=== PATIENT | male | born 1970 | race Hispanic/Latino ===

== ENCOUNTER 2017-09-09 22:35 | Emergency (ER) | payer OTHER, SELFPAY ==
[2017-09-09 23:42] LABS: Bilirubin Negative (Negative); Blood, Urine Negative (Negative); Clarity CLEAR (Clear); Glucose, Urine (Dipstick) >=1000 mg/dL (Negative); Leukocyte Negative (Negative); Nitrite Negative (Negative); Protein, Urine (Dipstick) Negative (Neg-Trace); Specific Gravity, Urine 1.036 (1.002-1.036)
[2017-09-09 23:51] LABS: #Eosinphils 0.3 thou/uL (0.0-0.7); #Lymphocytes 2.7 thou/uL (1.20-3.40); #Monocytes 0.3 thou/uL (0.11-0.59); #Neutrophils 3.8 thou/uL (1.40-6.50); %Basophils 0.3 % (0.0-1.0); %Eosinophils 4.8 % (0.0-10.0); %Lymphocytes 37.2 % (21.0-51.0); %Monocytes 4.2 % (0.0-10.0); %Neutrophils 53.5 % (42.0-75.0); Hemoglobin 15.5 g/dL (14.0-18.0); Mean Corpuscular HGB CONC 35.5 g/dL (32.0-36.0); Mean Corpuscular Hemoglobin 31.6 pg (27.0-31.0); Mean Corpuscular Volume 89.1 fL (78.0-98.0); Mean Platelet Volume 9.3 fL (7.4-10.4); Platelet Count 212 thou/uL (130-400); RBC Distribution Width 11.6 % (11.5-14.5); White Blood Cell (WBC) Count 7.1 thou/uL (4.8-10.8)
[2017-09-10 00:15] LABS: ALT (SGPT) 26 U/L (8-55); AST (SGOT) 16 U/L (5-34); Albumin 4.1 g/dL (3.5-5.0); Alkaline Phosphatase 66 U/L (40-150); Anion Gap 12 mmol/L (10-20); BUN (Urea Nitrogen) 18 mg/dL (8.9-20.6); Bilirubin, Total 0.4 mg/dL (0.2-1.2); Calc. Creatinine Clearance 0 mL/min (70-130); Calcium 10.2 mg/dL (7.8-10.44); Carbon Dioxide 26 mmol/L (22-29); Chloride 105 mmol/L (98-107); Estimated GFR-MDRD 64; Globulin 3.7 g/dL (2.4-3.5); Glucose 269 mg/dL (70-105); Potassium 3.9 mmol/L (3.5-5.1); Protein, Total 7.8 g/dL (6.0-8.3); Sodium 139 mmol/L (136-145)
[2017-09-10 00:19] LABS: CKMB 2.2 ng/mL (0-6.6); Troponin I Less than 0.010 ng/mL (< 0.028)
[2017-09-10] MEDS ORDERED: Ibuprofen 800 MG TAB ONE (01:08)
--- NOTE | 2017-09-10 08:36 | RAD ---
THREE VIEWS OF THE LUMBAR SPINE 09/09/17 HISTORY: T12 and L1 midline back pain. Worsening pain. COMPARISON: None. FINDINGS: There are five lumbar type vertebral bodies. Lumbar spine vertebral body height is maintained. No fra cture. No spondylolisthesis or spondylolysis. There is degenerative change with loss of disc space height and osteophyte formation of the distal th oracic spine and the thoracolumbar junction. IMPRESSION: Degenerative changes involving the distal thoracic and thoracolumbar junction. Nonemergent MRI may be beneficial. POS: [facility]
--- NOTE | 2017-09-10 08:36 | RAD ---
CHEST TWO VIEW 09/09/17 HISTORY: Swelling. COMPARISON: 03/26/16. FINDINGS: Normal cardiac silhouette. Lungs and pleural spaces are clear. No pneumothorax or osseous abnormaliti es. IMPRESSION: No acute cardiopulmonary process. POS: [facility]
== END 2017-09-10 01:12 | disposition home or self-care (01) ==
LOC: ERS 22:35
DX: M51.35 Other intervertebral disc degeneration, thoracolumbar region (principal); E11.9 Type 2 diabetes mellitus without complications; I10 Essential (primary) hypertension; Z79.84 Long term (current) use of oral hypoglycemic drugs; Z79.899 Other long term (current) drug therapy
CPT/HCPCS: 36415; 36416; 71046; 72100; 80053; 81003; 82553; 83880; 84484; 85025; 93005

== ENCOUNTER 2018-07-10 22:50 | Inpatient (IN) | payer SELFPAY ==
[2018-07-11] MEDS ORDERED: Acetaminophen 325 MG TAB PO PRN (01:59)
[2018-07-11] MEDS ORDERED: Ondansetron PF 4 MG/2 ML Vial IVP PRN (01:59)
[2018-07-11] MEDS ORDERED: Ondansetron ODT 4 MG TAB SL PRN (01:59)
[2018-07-11 03:13] VITALS: BMI 39.9
[2018-07-11] MEDS ORDERED: HumaLOG 300 UNITS/3 ML VIAL SC PRN (07:47)
[2018-07-11] MEDS ORDERED: Dextrose 5% in Water 1,000 ML IV PRN (07:47)
[2018-07-11] MEDS ORDERED: Dextrose 50% Abboject 50 ML SYRINGE SLOW IVP PRN (07:47)
[2018-07-11 08:27] LABS: #Eosinphils 0.6 thou/uL (0.0-0.7); #Lymphocytes 2.1 thou/uL (1.20-3.40); #Monocytes 0.4 thou/uL (0.11-0.59); %Basophils 0.4 % (0.0-1.0); %Eosinophils 8.1 % (0.0-10.0); %Lymphocytes 29.5 % (21.0-51.0); %Monocytes 5.7 % (0.0-10.0); %Neutrophils 56.3 % (42.0-75.0); Hemoglobin 14.2 g/dL (14.0-18.0); Mean Corpuscular HGB CONC 34.3 g/dL (32.0-36.0); Mean Corpuscular Hemoglobin 31.2 pg (27.0-31.0); Mean Corpuscular Volume 90.9 fL (78.0-98.0); Mean Platelet Volume 9.9 fL (7.4-10.4); Platelet Count 216 thou/uL (130-400); RBC Distribution Width 11.8 % (11.5-14.5); Red Blood Cell (RBC) Count 4.55 mill/uL (4.70-6.10); White Blood Cell (WBC) Count 7.1 thou/uL (4.8-10.8)
[2018-07-11 08:31] LABS: Anion Gap 14 mmol/L (10-20); BUN (Urea Nitrogen) 16 mg/dL (8.9-20.6); Calc. Creatinine Clearance 159 mL/min (70-130); Calcium 9.3 mg/dL (7.8-10.44); Carbon Dioxide 23 mmol/L (22-29); Chloride 104 mmol/L (98-107); Estimated GFR-MDRD 76; Glucose 184 mg/dL (70-105); Potassium 3.5 mmol/L (3.5-5.1); Sodium 137 mmol/L (136-145)
--- NOTE | 2018-07-11 09:39 | ULT ---
Carotid duplex sonogram HISTORY: TIA. Vascular disease. FINDINGS: Right: Minimal intimal thickening. No plaque well demonstrated. Color and spectral Doppler evaluation , peak systolic velocity of 60 cm/s, and IC to CC ratio 0.6 suggest no hematemesis significant stenosis within the extra cranial right ICA. Right vertebral artery not well demonstrated.. Reactive appearing lymph node noted at the right submandibular level. Left: Minimal plaque. Color and spectral Doppler evaluation, peak systolic velocity of 65 cm/s, and I C to CC ratio 0.7 suggest no hemodynamically significant stenosis within the extracranial left ICA. External carotid artery not well visualized. Antegrade flow within the vertebral artery. IMPRESSION: Mild atherosclerosis. No sonographic evidence of significant extracranial ICA stenosis.
--- NOTE | 2018-07-11 09:42 | HP ---
PRIMARY CARE PHYSICIAN: Patricia Leon PA-C. CHIEF COMPLAINT: Left-sided facial droop, slurred speech, and left upper and lower extremity weakness. HISTORY OF PRESENT ILLNESS: Mr. Loredo is a 48-year-old male with past medical history of hypertension, diabetes mellitus, and hyperlipidemia, who had presented to [place] [facility] yesterday for a possible CVA, TIA. He had stated that he had developed left-sided facial numbness and facial droop along with left upper and lower extremity weakness that lasted for about 15-20 minutes. He had reported that these symptoms were present about 1 week ago as well. He had denied any headache, fever, chills, blurred vision, chest pain, palpitation, shortness of breath, abdominal pain, nausea, vomiting, or any change in his stool. He did report once he had returned home after being out at a store with his , he had became slightly lightheaded; however, this had also lasted for about 15-20 minutes prior to arrival in the [place] [facility]. His workup was essentially unremarkable; however, he was noted to have an indeterminate troponin. Therefore, he was transferred to [facility] for further workup and management. His serial troponins were found to be trending down with his 1st of 0.084, 0.045 and the most current 0.020. Otherwise, his other lab work was essentially unremarkable. Brain CT showed no acute changes. Portable chest x-ray was unremarkable. CT dissection protocol was also unremarkable and the patient is no longer experiencing any left facial droop; however, he states that he has a mild left-sided facial numbness. It is determined that the patient will undergo further workup of symptoms to rule out TIA/CVA, and he will be started on aspirin and statin therapy. REVIEW OF SYSTEMS: All other systems reviewed and found to be negative unless mentioned in the HPI. PAST MEDICAL HISTORY: 1. Hypertension. 2. Hyperlipidemia. 3. Diabetes mellitus, type 2. PAST SURGICAL HISTORY: Bilateral leg vein cauterization. PSYCHIATRIC HISTORY: None. SOCIAL HISTORY: The patient denied any alcohol, tobacco, or illicit drug use. He states he lives at home with his family. KNOWN ALLERGIES: Tetanus. CURRENT HOME MEDICATIONS: 1. Metformin 500 mg oral twice daily. 2. Lisinopril daily. 3. Hydrochlorothiazide . PHYSICAL EXAMINATION: VITAL SIGNS: BP 121/69, pulse 77, respirations 16, temperature 97.5 degrees Fahrenheit, and O2 saturations 96% on room air. GENERAL: The patient is awake, alert, and oriented x3. He is currently lying comfortably in bed with his at bedside. He appears to be in no acute distress. HEENT: Atraumatic and normocephalic. Pupils are round and reactive to light. Extraocular muscles intact. Moist mucous membranes noted. There is no facial droop noted. CARDIOVASCULAR: Positive S1 and S2. Regular rate and rhythm. No murmur auscultated. RESPIRATORY: Clear to auscultation bilaterally. No wheezes, rales, or rhonchi. ABDOMEN: Soft and nontender. Bowel sounds present. MUSCULOSKELETAL: Strength 5+ bilaterally in upper and lower extremities. Pedal and radial pulses 2+ bilaterally. Trace edema noted. NEUROLOGIC: Cranial nerves 2 through 12 grossly intact. No focal deficits noted. Speech intact and normal. Gait not assessed. SKIN: Warm, dry, and intact. No rashes. No ulcerations noted. PSYCHIATRIC: Good mood and affect. LABORATORY DATA: WBC 7.1, RBC 4.55, hemoglobin 14.2, and platelets 216. Sodium 137, potassium 3.5, creatinine 1.04, estimated GFR 76, and glucose 184. Troponin 0.084, 0.045, and 0.020. Magnesium 2.0. DIAGNOSTIC IMAGING: Portable chest x-ray was unremarkable. Brain CT was normal. CT dissection protocol was unremarkable. ASSESSMENT AND PLAN: 1. Transient ischemic attack/cerebrovascular accident, rule out. The patient will undergo MRI of brain without contrast. An echocardiogram is ordered along with a carotid Doppler. The patient will be placed on aspirin and statin therapy at this time. He is currently not having any symptoms. Therefore, he will be closely monitored during hospital stay. 2. History of hypertension. The patient will be placed on his home regimen. Vital signs will be monitored throughout hospital course. 3. Diabetes mellitus, type 2. Metformin will be held; however, he will be started on an insulin sliding scale with frequent Accu-Cheks. 4. Hyperlipidemia. As above, he will be started on atorvastatin daily. 5. Code status, full code. 6. Deep vein thrombosis and gastrointestinal prophylaxis. DISPOSITION: The patient will undergo further workup for a TIA/CVA rule out, and based off his workup, he will likely be discharged in the next 1-2 days, he will be started on aspirin and statin therapy, and he will likely follow up with his PCP within 1 week of discharge. Job ID: [id number]
--- NOTE | 2018-07-11 09:58 | MRI ---
MRI BRAIN WITHOUT CONTRAST: HISTORY: A 48-year-old male with TIA, left-sided numbness and tingling. FINDINGS: Correlation is made with the CT scan of previous day. There is a small focal area of restricted diff usion in the right anterior thalamus with low signal intensity on ADC image consistent with acute lac unar infarction. No hemorrhage, midline shift, or abnormal extraaxial fluid collections are seen. V entricular size is appropriate and the basilar cisterns are patent. The visualized paranasal sinuses and mastoid air cells are well aerated. IMPRESSION: Acute lacunar infarction in the right anterior thalamus. POS: [facility]
[2018-07-11] MEDS ORDERED: Aspirin 81 mg Enteric Coated Tablet PO SCH ×2 (10:10→10:30)
[2018-07-11] MEDS: HumaLOG 300 UNITS/3 ML VIAL SC PRN ×2 (11:13→17:03)
--- NOTE | 2018-07-11 11:23 | CT ---
PRELIMINARY REPORT/[facility]/EMERGENCY AFTER HOURS PROCEDURE: EXAM: CT Angiography Chest With Contrast EXAM DATE/TIME: 07/11/2018 1:25 AM CLINICAL HISTORY: 48 years old, male; Abdominal pain; Generalized; Patient HX: No previous. . . Er 3. . . M48 with a hi story of HTN, dm and hdl presents to the ED from [place] [facility] for evaluation of possible cva/tia. PT reports at 16:30 today the PT began experiencing left sided facial numbness, left sided facial mere op, left ue numbness, and bilateral le weakness. PT reports his symptoms have resolved. PT reports he was experiencing chest pain yesterday. PT reports he experienced similar symptoms of left sided faci al numbness that resolved quickly last week. PT reports family HX of stroke, father. PT reports he ta kes metformin, lisinopril and hydrochlorothiazide. TECHNIQUE: Imaging protocol: Axial computed tomographic angiography images of the chest with intravenous contras t using CT angiography protocol. Coronal and sagittal reformatted images were created and reviewed. 3D rendering: MIP reconstructed images were created and reviewed. COMPARISON: No relevant prior studies available. FINDINGS: Pulmonary arteries: Limited evaluation due to suboptimal contrast opacification of the pulmonary dea alin, however there is no obvious central pulmonary embolism. Aorta: No acute findings. No aortic aneurysm or dissection. Lungs: No consolidation. No masses. Pleural space: No pneumothorax. No pleural effusion. Heart: Borderline cardiomegaly. No pericardial effusion. Lymph nodes: No significant adenopathy. Bones/joints: No acute fracture. Soft tissues: No acute findings. IMPRESSION: No acute findings. EXAM: CT Angiography Abdomen With Contrast EXAM DATE/TIME: 07/11/2018 1:25 AM CLINICAL HISTORY: 48 years old, male; Abdominal pain; Generalized; Patient HX: No previous. . . Er 3. . . M48 with a hi story of HTN, dm and hdl presents to the ED from [place] [facility] for evaluation of possible cva/tia. PT reports at 16:30 today the PT began experiencing left sided facial numbness, left sided facial mere op, left ue numbness, and bilateral le weakness. PT reports his symptoms have resolved. PT reports he was experiencing chest pain yesterday. PT reports he experienced similar symptoms of left sided faci al numbness that resolved quickly last week. PT reports family HX of stroke, father. PT reports he ta kes metformin, lisinopril and hydrochlorothiazide. TECHNIQUE: Imaging protocol: Axial computed tomographic angiography images of the abdomen with intravenous contr ast material. Coronal and sagittal reformatted images were created and reviewed. 3D rendering: MIP reconstructed images were created and reviewed. COMPARISON: No relevant prior studies available. FINDINGS: Lungs: Unremarkable. No consolidation. VASCULATURE: Aorta: No acute findings. No aortic aneurysm. No aortic dissection. Celiac trunk and mesenteric arteries: No acute findings. No occlusion or significant stenosis. Renal arteries: No acute findings. No occlusion or significant stenosis. ABDOMEN: Liver: Normal. No mass. Gallbladder and bile ducts: Few tiny probable gallstones. No biliary dilation. Pancreas: Normal. No ductal dilation. Spleen: Normal. No splenomegaly. Adrenals: Normal. No mass. Kidneys and ureters: Normal. No hydronephrosis. Stomach and bowel: Fecal loading. Diverticulosis. No evidence of bowel obstruction. Intraperitoneal space: Mild mesenteric fat stranding, small and a few prominent mesenteric lymph node s could relate to mesenteric panniculitis. No free air. No significant fluid collection. Bones/joints: No acute fracture. Bilateral L5 pars defects. Soft tissues: Small fat-containing umbilical hernia. Lymph nodes: No significant adenopathy. IMPRESSION: No acute findings. Possible mild mesenteric panniculitis. Cholelithiasis. Thank you for allowing us to participate in the care of your patient. Dictated and Authenticated by: Himanshu Ac MD 07/11/2018 2:09 AM Central Time ([place] & [place]) FINAL REPORT CT OF CHEST WITH IV CONTRAST AND 3D POSTPROCESSING CTA ABDOMEN WITH IV CONTRAST AND 3D POSTPROCESSING: I agree with the preliminary report given by Dr. Ac of [facility]. There is no evidence of thoracoabdom inal aortic aneurysm or dissection. POS: [facility]
[2018-07-11] MEDS ORDERED: ISOVUE-370 76%-LOCM 1 ML ONE (16:08)
[2018-07-11] MEDS ORDERED: Atorvastatin Calcium 40 MG TAB PO SCH (21:00)
[2018-07-11] MEDS: Famotidine 20 MG TAB PO SCH (21:08)
[2018-07-12 05:58] LABS: #Eosinphils 0.5 thou/uL (0.0-0.7); #Lymphocytes 2.2 thou/uL (1.20-3.40); #Monocytes 0.3 thou/uL (0.11-0.59); #Neutrophils 3.2 thou/uL (1.40-6.50); %Basophils 0.4 % (0.0-1.0); %Eosinophils 8.8 % (0.0-10.0); %Lymphocytes 34.8 % (21.0-51.0); %Monocytes 4.8 % (0.0-10.0); %Neutrophils 51.1 % (42.0-75.0); Hemoglobin 13.9 g/dL (14.0-18.0); Mean Corpuscular HGB CONC 33.4 g/dL (32.0-36.0); Mean Corpuscular Hemoglobin 30.5 pg (27.0-31.0); Mean Corpuscular Volume 91.3 fL (78.0-98.0); Mean Platelet Volume 10.1 fL (7.4-10.4); Platelet Count 190 thou/uL (130-400); RBC Distribution Width 11.8 % (11.5-14.5); Red Blood Cell (RBC) Count 4.54 mill/uL (4.70-6.10); White Blood Cell (WBC) Count 6.2 thou/uL (4.8-10.8)
[2018-07-12 06:14] LABS: Anion Gap 12 mmol/L (10-20); BUN (Urea Nitrogen) 11 mg/dL (8.9-20.6); Calc. Creatinine Clearance 193 mL/min (70-130); Calcium 9.3 mg/dL (7.8-10.44); Carbon Dioxide 24 mmol/L (22-29); Chloride 103 mmol/L (98-107); Cholesterol 145 mg/dl (< 200 Desired); Estimated GFR-MDRD Greater than 90; Glucose 150 mg/dL (70-105); HDL Cholesterol 24 mg/dL (>60 Neg Risk); LDL Cholesterol, Calculated 93 mg/dL; Potassium 3.6 mmol/L (3.5-5.1); Sodium 135 mmol/L (136-145); Triglycerides 141 mg/dL (Less than 150)
[2018-07-12] MEDS ORDERED: Enoxaparin Sodium 40 MG/0.4 ML SYRINGE SC SCH (09:00)
[2018-07-12] MEDS ORDERED: Aspirin 81 mg Enteric Coated Tablet PO SCH (09:00)
[2018-07-12] MEDS: Famotidine 20 MG TAB PO SCH (09:04)
[2018-07-12] MEDS ORDERED: Lisinopril 20 MG TAB PO SCH (10:45)
[2018-07-12] MEDS: HumaLOG 300 UNITS/3 ML VIAL SC PRN (11:04)
[2018-07-12 11:43] VITALS: TEMP 97.4
[2018-07-12 15:42] VITALS: BP 156/91
[2018-07-12] MEDS ORDERED: metFORMIN 500 MG TAB PO SCH (21:00)
[2018-07-13] MEDS ORDERED: HYDROCHLOROTHIAZIDE 10 MG PO SCH (09:00)
[2018-07-13] MEDS ORDERED: Hydrochlorothiazide 25 MG TAB PO SCH (09:00)
[2018-07-13] MEDS ORDERED: Lisinopril 20 MG TAB PO SCH (09:00)
--- NOTE | 2018-07-13 13:32 | DIS ---
DATE OF ADMISSION: 07/10/2018 DATE OF DISCHARGE: 07/12/2018 DISCHARGE DIAGNOSIS: Acute lacunar infarction of the right anterior thalamus. HISTORY OF PRESENT ILLNESS: This patient is a 48-year-old male with past medical history of hypertension, hyperlipidemia, diabetes mellitus type 2. The patient presented to the emergency department initially in [place] with concerns for CVA versus TIA. He developed some left-sided facial droop and numbness, which had resolved and then recurred sometime later with similar symptoms affecting his left upper and lower extremities. His initial CT scan of the head was normal. The patient was subsequently transferred from [place] to [facility] in [place]. HOSPITAL COURSE: The patient underwent a CT dissection protocol, which was a suboptimal exam, showed no acute findings. He had an MRI of the brain, which revealed the acute lacunar infarct of the right anterior thalamus. Carotid Doppler studies showed mild atherosclerotic disease, but no occlusive disease. Echocardiogram revealed suggestion of diastolic dysfunction with EF of 55% to 60 %. The patient's symptoms had significantly improved and he was able to get up and ambulate well with physical therapy. Neurology was consulted who ultimately reviewed the patient's records and history with the nurse and felt the patient was stable for discharge to have outpatient followup. PHYSICAL EXAMINATION: VITAL SIGNS: On the day of discharge, temperature is 97.4, pulse 61, respirations 18, O2 saturation 99% on room air, and BP 156/91. GENERAL APPEARANCE: Obese, age-appropriate male, in no distress. He is awake, alert, oriented, pleasant, and cooperative. HEENT: PERRL. No OP lesions. HEART: Regular rate and rhythm. LUNGS: Clear. ABDOMEN: Benign. EXTREMITIES: The patient had good strength in upper and lower extremities with slight decrease in sensation in the left upper extremity. DISPOSITION: The patient is discharged to home. DISCHARGE INSTRUCTIONS: I counseled the patient at length regarding improving his diet, his lifestyle, losing weight, and consideration of bariatric surgery, which the patient would consider. The patient and his 's questions were all answered. The patient is to have activity level as tolerated and he will be on a diabetic heart-healthy diet. MEDICATIONS: Include: 1. Atorvastatin 40 mg at bedtime. 2. Aspirin 81 mg daily. 3. Famotidine 20 mg b.i.d. He will continue 1. Lisinopril 20 mg daily. 2. Hydrochlorothiazide 10 mg daily. 3. Metformin 500 mg b.i.d. FOLLOWUP: He will follow up with Patricia Leon in 7 days and is to follow up with Dr. Pate in the outpatient setting in 7 days as well. He was given an order for outpatient occupational physical therapy. The patient may return to the hospital should he have any problems prior to his discharge. Time spent in discharge activities, including face to face time with the patient was 42 min. Job ID: [id number] MTDD
== END 2018-07-12 18:23 | disposition home or self-care (01) | DRG 65 ==
LOC: ERS 22:50 → 2SE 22:53 → OBSVTOIN 23:58
PROVIDERS: ADMIT Hospitalist; ATTEND Hospitalist
DX: I63.81 Other cerebral infarction due to occlusion or stenosis of small artery (principal); G81.94 Hemiplegia, unspecified affecting left nondominant side; I10 Essential (primary) hypertension; E11.9 Type 2 diabetes mellitus without complications; E78.5 Hyperlipidemia, unspecified; R29.810 Facial weakness; I70.90 Unspecified atherosclerosis; R47.81 Slurred speech; Z79.84 Long term (current) use of oral hypoglycemic drugs
CPT/HCPCS: 36415; 36416; 70551; 71275; 80048; 80061; 83735; 85025; 90471; 90732; 93306; 93880; G0009; J1650; Q9966

== ENCOUNTER 2019-04-14 11:49 | Outpatient (CLI) | payer OTHER | END 2019-04-14 11:50 | disposition home or self-care (01) | LOC: DTY/OP 11:49 | PROVIDERS: ATTEND Specialist | DX: Z01.818 Encounter for other preprocedural examination (principal); E66.01 Morbid (severe) obesity due to excess calories | CPT/HCPCS: 97802 ==